=== PATIENT | male | born 1980 | race Caucasian/White ===

== ENCOUNTER 2020-04-02 08:41 | Emergency (ER) | payer BC ==
[2020-04-02] MEDS ORDERED: Sodium Chloride 0.9% 10 ML Syringe FLUSH PRN (09:05)
[2020-04-02] MEDS ORDERED: cefTRIAXone 1 GM Vial IVPUSH ONE (09:08)
[2020-04-02] MEDS ORDERED: Lactated Ringers 1,000 ML IV ONE (09:08)
[2020-04-02] MEDS ORDERED: Ketorolac 30 MG/ML SDV IVPUSH ONE (09:08)
[2020-04-02] MEDS ORDERED: Iopamidol 612 MG/ML 100 ML Bottle IVPUSH ONE (09:17)
--- NOTE | 2020-04-02 09:28 | EDM.PDOC ---
ED HPI GENERAL MEDICAL PROBLEM - General Chief Complaint: General Stated Complaint: BAD TOOTH Time Seen by Provider: 04/02/20 08:59 Source of Information: Reports: Patient History Limitations: Reports: No Limitations - History of Present Illness INITIAL COMMENTS - FREE TEXT/NARRATIVE: Patient comes emergency department today with complaints of facial swelling and a facial infection and possibly abscessed tooth. This patient 2 days ago developed some left upper dental pain. Yesterday he had quite a bit of facial swelling. He was seen at the dentist office yesterday started on clindamycin. Today he was at the dental office when they tried to pull an upper tooth due to concern of an abscessed tooth but they were unable to extract the tooth. He had quite a bit more swelling primarily under the upper eyelid. He was sent to the emergency department for concerns of worsening infection possibly the need for IV antibiotics. Upon arrival the patient really relates he does not have any pain in his oral cavity earlier today or yesterday. He had a little bit of soreness 2 days ago but that resolved and the swelling is primarily on his face his cheek and under his eye. He has no dental pain at this time. The only reason that he has any pain is because they injected his tooth and tried to pull his tooth prior to that he did not have any oral pain. He has no fever no chills. No difficulty swallowing. No drooling. No shortness of breath cough or congestion. He has no blurry or double vision. He has no breaks in the skin or recent trauma to his face. No headache. No stiff neck. No weakness dizziness lightheadedness. No Covid exposure no Covid symptoms Treatments [employer] OFFICER: Reports: NSAIDS Left Upper Cheek and Lower Eyelid Pain Score (Numeric/FACES): 8 - Related Data Allergies Allergy/AdvReac Type Severity Reaction Status Date / Time Latex, Natural Rubber Allergy Itching Verified 04/02/20 08:58 Home Meds: Home Meds Clindamycin HCl 150 mg PO TID 04/02/20 [History] Clindamycin HCl 450 mg PO QID #60 capsule 04/02/20 [Rx] Hydrocodone/Acetaminophen [Voorhees 5-325 Tablet] 1 each PO Q6HR PRN #12 tablet 04/02/20 [Rx] ED ROS GENERAL - Review of Systems Review Of Systems: Comprehensive ROS is negative, except as noted in HPI. ED EXAM, GENERAL - Physical Exam Exam: See Below Exam Limited By: No Limitations General Appearance: Alert, WD/WN, No Apparent Distress Eye Exam: Left Eye: Periorbital Changes (He has quite a bit of edema and swelling of the lower eyelid as well as the zygomatic arch region and up to the nose. This really appears more preseptal cellulitis versus orbital cellulitis. There is no swelling of the upper eyelid there is no exophthalmos.), Bilateral Eye: EOMI, PERRL Ears: Normal External Exam, Normal TMs Nose: Normal Inspection, Normal Mucosa Throat/Mouth: Normal Inspection (Looking inside the oral cavity there really is no erythema induration swelling. There is no acute signs of abscess dental fracture or other acute pathology in the oropharynx. Gums are noninfected. There is no loose or infected appearing teeth in the oral cavity.), Normal Lips, Normal Gums, Normal Oropharynx Head: Facial Swelling (As described above there is quite a bit of swelling on the left lower eyelid as well as along the zygomatic arch. There is none on the right. This does not appear to be erysipelas this appears to be more isolated preseptal cellulitis.) Neck: Normal Inspection Respiratory/Chest: No Respiratory Distress, Lungs Clear, No Accessory Muscle Use Cardiovascular: Normal Peripheral Pulses, Regular Rate, Rhythm Extremities: Normal Inspection Neurological: Alert, Oriented, Normal Cognition, Normal Gait, No Motor/Sensory Deficits Psychiatric: Normal Affect, Normal Mood Skin Exam: Warm, Dry, Intact, Normal Color Course - Vital Signs Last Recorded V/S: Last Vital Signs Temp 98.6 F 04/02/20 09:00 Pulse 60 04/02/20 09:00 Resp 16 04/02/20 09:00 BP 146/84 H 04/02/20 09:00 Pulse Ox 99 04/02/20 09:00 - Orders/Labs/Meds Labs: Laboratory Tests 04/02/20 04/02/20 04/02/20 Range/Units 09:16 09:16 09:16 WBC 13.2 H (4.0-10.0) x10^3/uL RBC 4.46 L (4.5-6.0) x10^6/uL Hgb 14.4 (14.0-18.0) g/dL Hct 41.6 (40.0-52.0) % MCV 93.3 H (78.0-93.0) fL MCH 32.3 H (26.0-32.0) pg MCHC 34.6 (32.0-36.0) g/dL RDW Coeff of Teo 12.6 (10.0-15.0) % Plt Count 254 (130-400) x10^3/uL Neut % (Auto) 74.7 (50.0-80.0) % Lymph % (Auto) 14.4 L (25.0-50.0) % [place] % (Auto) 10.6 (2.0-11.0) % Eos % (Auto) 0.2 (0.0-4.0) % Baso % (Auto) 0.1 L (0.2-1.2) % Sodium 139 (136-145) mmol/L Potassium 4.3 (3.5-5.1) mmol/L Chloride 101 (98-107) mmol/L Carbon Dioxide 30 (21-32) mmol/L Anion Gap 12.3 (10-20) mmol/L BUN 10 (7-18) mg/dL Creatinine 1.1 (0.70-1.30) mg/dL Est Cr Clr Drug Dosing TNP Estimated GFR (MDRD) > 60 Glucose 125 H (74-106) mg/dL Lactic Acid 0.8 (0.4-2.0) mmol/L Calcium 9.0 (8.5-10.1) mg/dL Corrected Calcium 8.92 (8.5-10.1) mg/dL Total Bilirubin 0.6 (0.2-1.0) mg/dL AST 15 (15-37) U/L ALT 23 (16-63) U/L Alkaline Phosphatase 51 (46-116) U/L C-Reactive Protein 5.0 H (<=0.9) mg/dL Total Protein 7.4 (6.4-8.2) g/dL Albumin 4.1 (3.4-5.0) g/dL Globulin 3.3 Albumin/Globulin Ratio 1.24 Meds: Medications Discontinued Medications Generic Name Dose Route Start Last Admin Trade Name Freq PRN Reason Stop Dose Admin Ceftriaxone Sodium 1 gm 04/02/20 09:08 04/02/20 09:34 Rocephin IVPUSH 04/02/20 09:09 1 gm STAT ONE Administration Lactated Ringer's 1,000 mls @ 999 mls/hr 04/02/20 09:08 04/02/20 09:40 Ringers, Lactated IV 04/02/20 10:08 999 mls/hr ONETIME ONE Administration Vancomycin HCl 1.25 gm/ Sodium 250 mls @ 200 mls/hr 04/02/20 09:08 04/02/20 09:40 Chloride IV 04/02/20 10:22 200 mls/hr STAT ONE Administration Iopamidol 100 ml 04/02/20 09:17 04/02/20 10:15 Isovue-300 (61%) IVPUSH 04/02/20 09:18 100 ml ONETIME ONE Administration Ketorolac Tromethamine 30 mg 04/02/20 09:08 04/02/20 09:25 Toradol IVPUSH 04/02/20 09:09 30 mg ONETIME ONE Administration Sodium Chloride 10 ml 04/02/20 09:05 Saline Flush FLUSH ASDIRECTED PRN Keep Vein Open - Radiology Interpretation Free Text/Narrative:: CT facial bones with contrast extensive facial soft tissue swelling on the left findings are most consistent with cellulitis in the clinical setting of infection etiology most likely dentigerous as there is an apical lucency adjacent to the left maxillary premolar that extends through the cortical margin of the alveolar ridge into the adjacent soft tissues. Resulting in phlegmonous change and possible small abscess formation. Incidentally noted a vascular malformation associated with the posterior fossa right of the midline extending into the right cerebellar hemisphere. CT angiogram of the head and neck is recommended. - Re-Assessments/Exams Free Text/Narrative Re-Assessment/Exam: Labs are drawn. IV LR 1 L wide open. Ketorolac 30 mg IV push. Vancomycin and Rocephin IV piggyback. CT scan of the facial bones concerning for facial cellulitis most likely from left maxillary premolar with small questionable abscess and phlegmonous change. Oral cavity there is clearly no abscess identified to be drained. Patient had quite a bit of improvement with the pain management as above. He still needs to see the dentist with the concerns of the abscess on this premolar. We will increase his clindamycin to 450 mg every 6 hours. Cautioned him aggressively with the risk of diarrhea and to ensure that he is using yogurt and probiotics. He needs to follow-up with his dentist as soon as possible. If his swelling is worsening or he develops a fever or any other pathology he needs to return immediately to the emergency department. He is understanding this and his questions are answered. 04/03/20 14:29 04/03/20 14:31 I spoke with the patient about 24 hours after his ER visit. He relates that the swelling in his eyelid is completely resolved. He has no fever or chills. No difficulty swallowing. The swelling on his cheek is about 50% better. Morning he developed what he called a bubble in his gums that opened up and started to drain some very purulent discharge and his pain in his pressure and swelling is much improved since. Clearly this abscess has localized opened and drained by the patient's report. We will continue the antibiotic therapy should get better now that he is able to drain. Still needs to see the dentist which she is working on. He is aware that if anything new or worse he is to recheck but it sounds like he is improving. I reiterated the importance of probiotics and yogurt. He is comfortable with this plan his questions are answered. Departure - Departure Time of Disposition: 10:48 Disposition: Home, Self-Care 01 Clinical Impression: Dental abscess, Vascular malformation - Discharge Information Prescriptions: Clindamycin HCl 450 mg PO QID #60 capsule Hydrocodone/Acetaminophen [Voorhees 5-325 Tablet] 1 each PO Q6HR PRN #12 tablet PRN Reason: Pain Instructions: Dental Abscess, [id number] Referrals: PCP,None [Primary Care Provider] - Forms: ED Department Discharge Additional Instructions: It appears that the infection is coming from the left upper pre-molar region. Increase your Clindamycin to 450mg every 6 hrs. That is three of the capsules you already have. Do this for the next 10 days. I have sent another prescription over to [facility] for the treatment. Total of 10 days total for therapy. Do not discontinue until the 10 days unless dentist instructed. Contact your dentist today or tomorrow for follow up. With the Vascular malformation incidentally noted on your CT scan you need a CTA head and neck with primary care in the next few weeks for further workup. Please contact your PCP for follow up in the next few weeks. Return to the ED if new or worsening symptoms. Tylenol and or Ibuprofen as needed for pain. If pain not controlled with above. Voorhees, 1 tablet every 6 hrs with food as needed for pain. Caution sedation. Rx sent to [facility] pharmacy. When you are at the pharmacy. Purchase pro-biotics as guided by the pharmacist when you are on the anti-biotics. Sepsis Event Note (ED) - Evaluation Sepsis Screening Result: No Definite Risk
[2020-04-02 09:44] LABS: CHLORIDE,CL 101 mmol/L (98-107); SODIUM,NA 139 mmol/L (136-145)
[2020-04-02 09:47] LABS: ANION GAP 12.3 mmol/L (10-20)
--- NOTE | 2020-04-02 10:45 | CT ---
[id number] CT/CT Facial Bones W IV Exam: CT Facial Bones W IV Indication:FACIAL SWELLING, POSSIBLE PRE-SEPTAL CELLULITIS. Comparison: No prior imaging for comparison. Discussion: Soft tissue edema centered on the left maxillary region extending over the left mandibular and periorbital regions. Of there are signs of infection, findings would be consistent with cellulitis, including preseptal sialitis of the orbit. No evidence of post septal infectious process. Periapical lucency adjacent to a left maxillary premolar (series 5 image 33 and series 2 image 40). This extends through the cortical margin of the left maxillary alveolar ridge into the soft tissues (series 2 image 40). Where there is a peripherally enhancing focal area of edema measuring 20 x 8 x 12 mm, suggesting phlegmonous change and possible early abscess (series 2 image 39). Paranasal sinus mucosal thickening, including complete opacification of the left maxillary infundibula. Incidentally noted is a vascular malformation in the posterior fossa right of midline involving the cerebellar hemisphere. Impression: Extensive facial soft tissue swelling on the left. Findings are most consistent with cellulitis in the clinical setting of infection. Etiology is likely dentigerous, as there is a periapical lucency adjacent to a left maxillary premolar that extends through the cortical margin of the alveolar ridge into the adjacent soft tissues, resulting in phlegmonous change and possible small abscess formation described in detail above. Incidentally noted is a vascular malformation associated with the posterior fossa right of midline extending into the right cerebellar hemisphere. CT angiography of the head and neck is recommended. Raza Chisholm MD 04/02/20 1043 Thank you for allowing us to participate in the care of your patient.
== END 2020-04-02 11:38 | disposition home or self-care (01) ==
LOC: VM.ED 08:41
DX: K04.7 Periapical abscess without sinus (principal); Q04.9 Congenital malformation of brain, unspecified; Z91.040 Latex allergy status
CPT/HCPCS: 70487; 80053; 83605; 85025; 86140; 96365; 96375; 99283; 99283-25; J0696; J1885; J3370; J7050; J7120; Q9967

== ENCOUNTER 2024-11-23 14:56 | Emergency (ER) | payer BC | END 2024-11-23 15:55 | disposition home or self-care (01) | LOC: VM.ED 14:56 → SUPCPDRO 14:56 → VM.ED 15:55 | DX: S80.01XA Contusion of right knee, initial encounter (principal); Z91.040 Latex allergy status; Z79.899 Other long term (current) drug therapy; X50.0XXA Overexertion from strenuous movement or load, initial encounter; Y93.89 Activity, other specified | CPT/HCPCS: 73562-RT; 99283 ==